=== PATIENT | male | born 1975 | race Caucasian/White ===

== ENCOUNTER 2020-09-12 10:12 | Emergency (ER) | payer OTHER, SELFPAY ==
--- NOTE | 2020-09-12 10:20 | ED.URI ---
HPI - URI/Sore Throat General Chief Complaint: Upper Respiratory Infection Stated Complaint: URI Time Seen by Provider: 09/12/20 10:20 Source: patient and RN notes reviewed History of Present Illness HPI Narrative: Patient is a 45-year-old male who presents the urgent care with complaints of sinus congestion, fatigue, increased urination, increased thirst, and weight loss. Patient states that he is also been having episodes of dizziness without chest pain or shortness of breath. States that the sinus congestion and fatigue started a week and a half ago and seems to have worsened. Patient states that what brought him here today was the increased dizziness. Patient denies of any history of diabetes or any other medical history besides mesh in the abdomen from a past hernia. Patient denies of any fever, chills, nausea, vomiting. Denies of any recent drug or alcohol use. States that the weight loss has been approximately 10 pounds in the last month but he attributed that to a lot of stress in his life . Patient also states that he has not had much of an appetite because he cannot taste or smell . No other acute complaints. No acute distress noted. Patient aware of the plan of care. Some parts of this dictation were generated by voice recognition software and may contain typographical and/or grammatical inaccuracies. Related Data Home Medications Medication Instructions Recorded Confirmed No Home Medications 09/12/20 09/12/20 Allergies Allergy/AdvReac Type Severity Reaction Status Date / Time No Known Allergies Allergy Unknown Verified 10/20/17 08:41 Review of Systems Review of Systems: Narrative: CONSTITUTIONAL: Denies fever, chills, or sweats. Reports of fatigue EYES: Denies visual changes, redness, or discharge. ENT: Reports of sinus congestion CARDIOVASCULAR: Denies chest pain, palpitations, or edema. RESPIRATORY: Denies cough or dyspnea. GASTROINTESTINAL: Denies abdominal pain, nausea, vomiting, or diarrhea. GENITOURINARY: Reports of increased urination SKIN: Denies rash or itching. MUSCULOSKELETAL: Denies back pain, joint pain, or myalgia. NEUROLOGIC: Denies headache, numbness, or weakness. Reports of intermittent dizziness All other systems reviewed are negative, except as documented in HPI. [facility] Social History Social History Alcohol intake: never Comments At the time of my signature, I reviewed and agree with the nursing past medical, surgical, social, and family history. There is no relevant family history pertinent to the patient complaint. Exam Narrative: Exam Narrative: GENERAL: This is a well-nourished, well-developed patient, in no apparent distress. HEAD: normocephalic, atraumatic. EYES: PERRL. Sclera clear/white. Vision is grossly intact. EARS: External ears normal, auditory canals clear and without drainage, TMs normal without perforation. Hearing grossly intact. NOSE: External nose normal with no obvious nasal discharge, mild erythemic bilateral nares, clear rhinorrhea. THROAT: Mucous membranes moist, posterior pharynx clear. Mild postnasal drainage NECK: Neck supple, non-tender without lymphadenopathy, masses or thyromegaly. CARDIOVASCULAR: Regular rate and rhythm without murmurs, gallops, or rubs. RESPIRATORY: Clear to auscultation. Breath sounds equal bilaterally. No wheezes, rales, or rhonchi. SKIN: warm, intact with no suspicious lesions or rash, good texture and turgor. NEURO: awake, alert, and oriented to person, place and time. There were no obvious focal neurologic abnormalities. EXTREMITIES: No clubbing, cyanosis, or edema. BACK: Nontender without deformity or crepitance. No flank tenderness. Course Vital Signs Vital signs: Vital Signs Temperature 97.4 F L 09/12/20 10:24 Pulse Rate 76 09/12/20 10:24 Respiratory Rate 20 09/12/20 10:24 Blood Pressure 119/54 L 09/12/20 10:24 Pulse Oximetry 100 09/12/20 10:24 Temperature 97.4 F L 09/12/20 10:24 Pulse Ra
[2020-09-12 10:24] VITALS: BP 119/54; PULSE 76; RESP 20; TEMP 36.3; O2SAT 100
[2020-09-12 10:32] LABS: Glucose Point of Care 104 (65-105)
== END 2020-09-12 10:49 | disposition home or self-care (01) ==
PROVIDERS: Emergency Provider Nurse Practitioner Family; PCP Family Medicine
DX: U07.1 COVID-19 (principal)
CPT/HCPCS: 82948; 99212; G0463

== ENCOUNTER 2025-05-26 07:39 | Emergency (ER) | payer OTHER, SELFPAY ==
--- NOTE | ~2025-05-26 | XR_ITS ---
XR forearm LT 2V 05/26/2025 08:04 Indication: Left arm pain Procedure: 2 views left forearm Comparison: No prior studies for comparison. Findings: There is a transverse mildly displaced distal ulnar diaphyseal fracture. No significant ang ulation. There is subcutaneous gas surrounding the distal aspect of the ulna. Impression: 1: Mildly displaced transverse fracture distal ulnar diaphysis Reviewed, dictated and finalized at location A. Impression: 1: Mildly displaced transverse fracture distal ulnar diaphysis
--- OUTSIDE RECORDS SUMMARY | 2025-05-26 07:41 | XMS_ITS | Clinical Summary ---
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 20 Tab 0 02/26/2016 Active Social History Tobacco Use Types Packs/Day Years Used Date Smoking Tobacco: Every Day Cigarettes 1 25 Alcohol Use Standard Drinks/Week Comments No 0 (1 standard drink = 0.6 oz pur e alcohol) Sex and Gender Information Value Date Recorded Sex Assigned at Not on file Legal Sex Male 7:06 PM CDT Gender Identity Not on file Sexual Orientation Not on file Last Filed Vital Signs Vital Sign Reading Time Taken Comments Blood Pressure 130/72 02/26/2016 8:42 AM CDT Pulse 83 02/22/2016 12:22 PM CDT Temperature 36.4 C (97.6 F) 02/26/2016 8:42 AM CDT Respiratory Rate 20 02/26/2016 8:42 AM CDT Oxygen Saturation 100% 02/26/2016 8:42 AM CDT Inhaled Oxygen Concentration - - Weight 77.1 kg (170 lb) 02/26/2016 8:42 AM CDT Height 182.9 cm (6') 02/26/2016 8:42 AM CDT Body Mass Index 23.06 02/26/2016 8:42 AM CDT Plan of Treatment Health Maintenance Due Date Last Done Comments Hepatitis C Virus (HCV) Screening 1973 TdaP Immunization 1973 Hepatitis B Immunization (1 of 3 - 19+ 3-dose series) 01/27/1992 Cologuard 2018 Colonoscopy 2018 Colorectal Cancer Screening 2018 Immunochemical Fecal Occult Blood 2018 Pneumococcal Immunization (5 0+ years) (1 of 1 - PCV) 2023 Zoster Immunization (1 of 2) 2023 SARS-COV-2 Immunization (1 - season) 2024 Influenza Immunization (#1) 2025 Respiratory Syncytial Virus (RSV) Immunization (Adult) (1 - 1-dose 75+ series) 01/27/2048 Human Papillomavirus (HPV) Immunization Aged Out No longer eligible b ased on patient's age to complete this topic Meningococcal Immunization (ACWY) Aged Out No longer eligible based on patient's age to complete this topic Rotavirus Immunization Aged Out No lo nger eligible based on patient's age to complete this topic Care Teams Pig Machine Operator Relationship Specialty Start Date End Date Konstantin Mckeon MD [address] [place] [phone] PCP - General Family Medicine 05/12/17
[2025-05-26 07:50] VITALS: BP 113/73; PULSE 72; RESP 16; TEMP 36.6; O2SAT 98
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
[2025-05-26] MEDS: TETANUS,DIPHTHERIA,AC PERTUSSIS ADULT (0.5 ML) BOOSTRIX IM (08:20)
[2025-05-26 08:28] VITALS: BP 102/68; PULSE 70; RESP 16; TEMP 36.6; O2SAT 98
== END 2025-05-26 09:18 | disposition home or self-care (01) ==
PROVIDERS: Emergency Provider Emergency Medicine; PCP Family Medicine
DX: S59.092A Other physeal fracture of lower end of ulna, left arm, initial encounter for closed fracture (principal); Z23 Encounter for immunization; Y00.XXXA Assault by blunt object, initial encounter
CPT/HCPCS: 29125; 73090; 90471; 90715; 99284; A4565